=== PATIENT | male | born 1995 | race Caucasian/White ===

== ENCOUNTER 2016-12-18 10:08 | Emergency (ER) | payer SELFPAY ==
[~2016-12-18] VITALS: Ht 177.8 cm; Wt 99.0 kg
[2016-12-18 10:09] VITALS: BP 132/60; PULSE 86; RESP 20; TEMP 98.9; O2SAT 99
--- NOTE | 2016-12-18 10:24 | PD ---
HPI Chief Complaint: Injury Time Seen by Provider: 10:23 Travel History International Travel<30 days: No Contact w/Intl Traveler<30days: No Traveled to known affect area: No History of Present Illness HPI 20-year-old male presents emergency Department with complaint of left foot pain that he woke up this morning. Denies injury. Denies paresthesias, loss of sensation, decreased range of motion, decreased strength to the affected extremity. Pain is to the dorsal aspect of the foot. Denies swelling. Denies fever, vomiting. Has not taken any medications or tried any treatments to alleviate symptoms. Pain is aggravated with ambulation and palpation. Symptoms are mild in severity. Has no other medical complaints. No modifying factors or associated signs and symptoms. Review of Systems Except as stated in HPI: all other systems reviewed are Neg Physical Exam Narrative GENERAL: Well-nourished, well-developed male patient, in no acute distress SKIN: Warm and dry. HEAD: Atraumatic. Normocephalic. EYES: Pupils equal and round. No scleral icterus. No injection or drainage. ENT: Mucosa pink and moist. Airway patent. NECK: Trachea midline. CARDIOVASCULAR: Regular rate. RESPIRATORY: No accessory muscle use. GASTROINTESTINAL: Rounded. MUSCULOSKELETAL: Left ankle and foot are nonedematous and without erythema or ecchymosis; no obvious deformity; tenderness on palpation to the dorsal aspect of the foot; no obvious deformity; 2+ pedal pulse; sensory intact; Patient ambulatory with a limp to the left lower extremity. No obvious deformities. No clubbing. No cyanosis. No edema. NEUROLOGICAL: Awake and alert. Oriented 3. No obvious cranial nerve deficits. Motor grossly within normal limits. Normal speech. PSYCHIATRIC: Appropriate mood and affect; insight and judgment normal. Data Data Last Documented VS Vital Signs Date Time Temp Pulse Resp B/P (MAP) Pulse Ox O2 Delivery O2 Flow Rate FiO2 12/18/16 10:09 98.9 86 20 132/60 (84) 99 Room Air [facility] Medical Screen Exam Complete: Yes Emergency Medical Condition: No Differential Diagnosis foot pain Narrative Course 20-year-old male with left foot pain that he woke up with yesterday. Denies injury. I do not suspect fracture and feel that imaging is not necessary at this time. Vital signs are stable and the patient is stable for outpatient follow-up and treatment. The patient has no urgent or emergent medical complaints. There is no emergent or urgent medical need at this time. I instructed the patient to follow up with their primary care provider. A medical screening exam was performed: At the time of evaluation the presenting medical condition was determined not to be of an emergent nature. The patient was given the option of receiving additional care, but declined. Patient was given options for additional community resources from which to obtain care. The Patient Has Been advised to seek medical attention for their presenting complaint. The patient has been advised to return to the ER at any time if an emergent condition develops. Primary Impression: Encounter for medical screening examination Condition: Stable Jael Nichole [facility] Dec 18, 2016 10:24
== END 2016-12-18 10:32 | disposition left against medical advice (07) ==
LOC: NEPK 10:08
DX: M79.672 Pain in left foot (principal)
CPT/HCPCS: 99281